=== PATIENT | female | born 1935 | race African-American/Black ===

== ENCOUNTER 2022-06-01 18:49 | Inpatient (IN) ==
[2022-06-01] MEDS ORDERED: ASPIRIN 325 MG TABLET PO STA (19:11)
[2022-06-01 19:23] LABS: Basophils % 0.8 % (0.0-0.8); Eosinophils # 0.2 10*3/uL (0.0-0.87); Eosinophils % 5.1 % (0.00-10.9); Hematocrit 28.6 VOL% (35.7-47.0); Hemoglobin 8.8 GM/DL (12.0-16.0); Immature Granulocytes % 0.3 %; Immature Granulocytes Absolute 0.01 #; Lymphocytes # 0.8 10*3/uL (1.4-4.0); Lymphocytes % 20.8 % (21.3-54.2); Mean Corpuscular HGB Conc 30.8 GM/DL (32-36); Mean Corpuscular Volume 88.5 FL (87-102); Mean Platelet Volume 10.5 FL (9.6-12.0); Monocytes # 0.5 10*3/uL (0.11-0.8); Monocytes % 12.1 % (1.7-12.7); Neutrophils % 60.9 % (38.7-73.9); Platelet Count 194 T/CUMM (130-400); Red Blood Count 3.23 MC/CUMM (3.8-5.5); Red Cell Distribution Width 13.8 % (9.3-17.3); White Blood Count 3.9 T/CUMM (4-12)
[2022-06-01 19:51] LABS: Alanine Aminotransferase 31 U/L (13-56); Alkaline Phosphatase 84 U/L (45-117); Aspartate Amino Transferase 27 U/L (0-37); Bilirubin,Total < 0.39 MG/DL (0.20-1.00); Blood Urea Nitrogen 56 MG/DL (7-18); Calcium 8.7 MG/DL (8.5-10.1); Carbon Dioxide 25 MMOL/L (21-32); Chloride 112 MMOL/L (98-107); Glucose 91 MG/DL (74-106); Osmolality,Calculated 292.5 MOS/KG (273-304); Sodium 139 MMOL/L (136-145); Total Protein 7.6 G/DL (6.4-8.2)
[2022-06-01 19:54] LABS: PT Patient Result 10.9 SECS (10.1-12.1); Potassium 6.8 MMOL/L (3.5-5.1)
[2022-06-01] MEDS ORDERED: INSULIN REGULAR 10 UNIT, CALCIUM GLUCONATE 1,000 MG in DEXTROSE 10% 250 ML IV ONE (19:55)
[2022-06-01] MEDS ORDERED: SODIUM POLYSTYRENE SULFATE 15 GM/60 ML BOTTLE PO STA (19:56)
[2022-06-01] MEDS ORDERED: SODIUM CHLORIDE 0.9% 500 ML IV STA (19:56)
[2022-06-01] MEDS ORDERED: ACETAMINOPHEN 325 MG TABLET PO PRN (20:41)
[2022-06-01] MEDS ORDERED: DEXTROSE 50% 25 GM/50 ML SYRINGE IV ONE (21:55)
[2022-06-01] MEDS ORDERED: DEXTROSE 50% 25 GM/50 ML VIAL IV STA (21:58)
[2022-06-01] MEDS: ONDANSETRON 4 MG/2 ML VIAL IV PRN (22:05)
[2022-06-01] MEDS: MORPHINE 2 MG/1 ML SYRINGE IV PRN (22:05)
[2022-06-01] MEDS ORDERED: DEXTROSE 50% 25 GM/50 ML SYRINGE IV STA (22:16)
[2022-06-01] MEDS ORDERED: DEXTROSE 10% 250 ML IV ONE (23:02)
[2022-06-01] MEDS: DEXTROSE 10% 250 ML IV SCH (23:05)
[2022-06-01 23:24] LABS: Calcium 8.7 MG/DL (8.5-10.1); Osmolality,Calculated 291.3 MOS/KG (273-304); Potassium 5.5 MMOL/L (3.5-5.1)
[2022-06-02] MEDS ORDERED: GLUCAGON 1 MG VIAL IM STA (00:03)
[2022-06-02] MEDS ORDERED: SODIUM POLYSTYRENE SULFATE 15 GM/60 ML BOTTLE PO STA (00:03)
[2022-06-02] MEDS: MORPHINE 2 MG/1 ML SYRINGE IV PRN (02:30)
[2022-06-02] MEDS: ONDANSETRON 4 MG/2 ML VIAL IV PRN (02:30)
[2022-06-02] MEDS ORDERED: DEXTROSE 10% 250 ML IV ONE (03:24)
[2022-06-02] MEDS: DEXTROSE 10% 250 ML IV SCH ×6 (04:23→21:10)
[2022-06-02 05:21] LABS: Calcium 8.7 MG/DL (8.5-10.1); Osmolality,Calculated 287.7 MOS/KG (273-304)
[2022-06-02 05:27] LABS: Potassium 6.5 MMOL/L (3.5-5.1)
[2022-06-02 05:31] LABS: Basophils % 0.7 % (0.0-0.8); Eosinophils # 0.2 10*3/uL (0.0-0.87); Eosinophils % 3.5 % (0.00-10.9); Hematocrit 30.6 VOL% (35.7-47.0); Hemoglobin 9.3 GM/DL (12.0-16.0); Immature Granulocytes % 0.5 %; Immature Granulocytes Absolute 0.02 #; Lymphocytes # 0.7 10*3/uL (1.4-4.0); Lymphocytes % 15.2 % (21.3-54.2); Mean Corpuscular HGB Conc 30.4 GM/DL (32-36); Mean Corpuscular Volume 88.7 FL (87-102); Mean Platelet Volume 10.8 FL (9.6-12.0); Monocytes # 0.4 10*3/uL (0.11-0.8); Monocytes % 9.7 % (1.7-12.7); Neutrophils % 70.4 % (38.7-73.9); Platelet Count 183 T/CUMM (130-400); Red Blood Count 3.45 MC/CUMM (3.8-5.5); White Blood Count 4.3 T/CUMM (4-12)
[2022-06-02] MEDS ORDERED: CALCIUM GLUCONATE RIDER 1,000 MG/50 ML PREMIX IV ONE (05:31)
[2022-06-02] MEDS ORDERED: SODIUM POLYSTYRENE SULFATE 15 GM/60 ML BOTTLE PO ONE (05:31)
[2022-06-02] MEDS ORDERED: ALBUTEROL 2.5 MG/3 ML NEB RESP TX ONE (05:41)
[2022-06-02] MEDS: INSULIN LISPRO 100 UNIT/ML SUBCUT SCH ×4 (07:38→21:11)
[2022-06-02] MEDS: SODIUM ZIRCONIUM CYCLOSILICATE 10 GM PACK PO SCH ×4 (07:39→21:23)
[2022-06-02] MEDS: ENOXAPARIN 30 MG/0.3 ML SYRINGE SUBCUT SCH (09:40)
[2022-06-02] MEDS: PANTOPRAZOLE 40 MG TABLET PO SCH (09:40)
[2022-06-02 13:50] LABS: Calcium 8.6 MG/DL (8.5-10.1); Osmolality,Calculated 274.4 MOS/KG (273-304)
[2022-06-02 13:53] LABS: Potassium 6.3 MMOL/L (3.5-5.1)
[2022-06-02] MEDS: cloNIDine 0.1 MG TABLET PO SCH (14:50)
[2022-06-02] MEDS: atenoloL 50 MG TABLET PO SCH (14:55)
[2022-06-02] MEDS: MAGNESIUM HYDROXIDE SUSP 30 ML UDCUP PO SCH (15:35)
[2022-06-02] MEDS: SODIUM CHLORIDE 0.9% 1,000 ML IV SCH ×3 (16:38→23:40)
[2022-06-02 20:10] LABS: Calcium 8.4 MG/DL (8.5-10.1); Osmolality,Calculated 279.8 MOS/KG (273-304); Potassium 5.3 MMOL/L (3.5-5.1)
[2022-06-02] MEDS ORDERED: GLUCAGON 1 MG VIAL IM PRN (20:23)
[2022-06-02] MEDS ORDERED: DEXTROSE 10% 250 ML BAG IV PRN (20:27)
[2022-06-02] MEDS: hydrALAZINE 20 MG/1 ML VIAL IV PRN (21:10)
[2022-06-02] MEDS: SIMVASTATIN 10 MG TABLET PO SCH (21:23)
[2022-06-03] MEDS: DEXTROSE 10% 250 ML IV SCH ×3 (01:54→12:15)
[2022-06-03 06:10] LABS: Basophils % 0.5 % (0.0-0.8); Eosinophils # 0.2 10*3/uL (0.0-0.87); Eosinophils % 5.4 % (0.00-10.9); Hematocrit 31.3 VOL% (35.7-47.0); Hemoglobin 9.9 GM/DL (12.0-16.0); Immature Granulocytes % 0.5 %; Immature Granulocytes Absolute 0.02 #; Lymphocytes # 0.6 10*3/uL (1.4-4.0); Mean Corpuscular HGB Conc 31.6 GM/DL (32-36); Mean Corpuscular Volume 87.2 FL (87-102); Mean Platelet Volume 10.6 FL (9.6-12.0); Monocytes # 0.4 10*3/uL (0.11-0.8); Monocytes % 9.7 % (1.7-12.7); Neutrophils % 70.9 % (38.7-73.9); Platelet Count 179 T/CUMM (130-400); Red Blood Count 3.59 MC/CUMM (3.8-5.5); Red Cell Distribution Width 13.6 % (9.3-17.3); White Blood Count 4.2 T/CUMM (4-12)
[2022-06-03 06:22] LABS: Calcium 8.6 MG/DL (8.5-10.1); Osmolality,Calculated 269.5 MOS/KG (273-304); Potassium 5.1 MMOL/L (3.5-5.1)
[2022-06-03] MEDS: INSULIN LISPRO 100 UNIT/ML SUBCUT SCH ×4 (08:19→20:53)
[2022-06-03] MEDS: atenoloL 50 MG TABLET PO SCH (08:27)
[2022-06-03] MEDS: ENOXAPARIN 30 MG/0.3 ML SYRINGE SUBCUT SCH (08:28)
[2022-06-03] MEDS: MAGNESIUM HYDROXIDE SUSP 30 ML UDCUP PO SCH (08:28)
[2022-06-03] MEDS: cloNIDine 0.1 MG TABLET PO SCH (08:28)
[2022-06-03] MEDS: PANTOPRAZOLE 40 MG TABLET PO SCH (08:28)
[2022-06-03] MEDS: SODIUM ZIRCONIUM CYCLOSILICATE 10 GM PACK PO SCH ×2 (08:28→16:50)
[2022-06-03] MEDS: SODIUM CHLORIDE 0.9% 1,000 ML IV SCH (16:08)
[2022-06-03] MEDS: SIMVASTATIN 10 MG TABLET PO SCH (20:51)
[2022-06-04 02:05] LABS: Bacteria,Urine Occasional /HPF (Few); Mucus,Urine Occasional /LPF (Occasional)
[2022-06-04 02:06] LABS: Glucose,Urine (UA) Negative (Negative); Ketones,Urine Negative (Negative); Nitrite,Urine Negative (Negative); Protein,Urine Negative (Negative); Urine Appearance Clear (Clear); Urine Color Yellow (Yellow); Urine Specific Gravity 1.015 (1.001-1.035); Urine pH 7.5 (4.5-8.0)
[2022-06-04 02:07] LABS: Bilirubin,Urine Negative (Negative); Blood, Urine Trace mg/dL (Negative); Urine Urobilinogen 0.2 eU/dL (<2.0)
[2022-06-04] MEDS: SODIUM CHLORIDE 0.9% 1,000 ML IV SCH ×3 (04:33→18:04)
[2022-06-04 06:58] LABS: Calcium 8.5 MG/DL (8.5-10.1); Osmolality,Calculated 281.4 MOS/KG (273-304); Potassium 5.2 MMOL/L (3.5-5.1)
[2022-06-04] MEDS: INSULIN LISPRO 100 UNIT/ML SUBCUT SCH ×4 (07:46→20:02)
[2022-06-04] MEDS: MAGNESIUM HYDROXIDE SUSP 30 ML UDCUP PO SCH (08:53)
[2022-06-04] MEDS: atenoloL 50 MG TABLET PO SCH (08:53)
[2022-06-04] MEDS: ENOXAPARIN 30 MG/0.3 ML SYRINGE SUBCUT SCH (08:53)
[2022-06-04] MEDS: PANTOPRAZOLE 40 MG TABLET PO SCH (08:53)
[2022-06-04] MEDS: cloNIDine 0.1 MG TABLET PO SCH (08:53)
[2022-06-04] MEDS: SIMVASTATIN 10 MG TABLET PO SCH (20:02)
[2022-06-05] MEDS: hydrALAZINE 20 MG/1 ML VIAL IV PRN ×2 (00:27→10:54)
[2022-06-05] MEDS: SODIUM CHLORIDE 0.9% 1,000 ML IV SCH ×2 (06:04→19:30)
[2022-06-05] MEDS: INSULIN LISPRO 100 UNIT/ML SUBCUT SCH ×4 (08:56→20:54)
[2022-06-05 10:09] LABS: Calcium 9.2 MG/DL (8.5-10.1); Osmolality,Calculated 275.2 MOS/KG (273-304); Potassium 4.6 MMOL/L (3.5-5.1)
[2022-06-05] MEDS: MAGNESIUM HYDROXIDE SUSP 30 ML UDCUP PO SCH (10:50)
[2022-06-05] MEDS: atenoloL 50 MG TABLET PO SCH (10:51)
[2022-06-05] MEDS: cloNIDine 0.1 MG TABLET PO SCH (10:51)
[2022-06-05] MEDS: PANTOPRAZOLE 40 MG TABLET PO SCH (10:51)
[2022-06-05] MEDS: ENOXAPARIN 30 MG/0.3 ML SYRINGE SUBCUT SCH (10:52)
[2022-06-05] MEDS: RIVASTIGMINE 4.6 MG/24 HR PATCH TRANSDERM SCH (10:53)
[2022-06-05] MEDS: SIMVASTATIN 10 MG TABLET PO SCH (21:15)
[2022-06-06] MEDS: INSULIN LISPRO 100 UNIT/ML SUBCUT SCH ×3 (09:36→16:10)
[2022-06-06] MEDS: ENOXAPARIN 30 MG/0.3 ML SYRINGE SUBCUT SCH (09:38)
[2022-06-06] MEDS: MAGNESIUM HYDROXIDE SUSP 30 ML UDCUP PO SCH (09:38)
[2022-06-06] MEDS: RIVASTIGMINE 4.6 MG/24 HR PATCH TRANSDERM SCH (09:39)
[2022-06-06] MEDS: PANTOPRAZOLE 40 MG TABLET PO SCH (09:39)
[2022-06-06] MEDS: cloNIDine 0.1 MG TABLET PO SCH (09:39)
[2022-06-06] MEDS: atenoloL 50 MG TABLET PO SCH (09:49)
[2022-06-06 11:29] VITALS: BP 123/65
[2022-06-06] MEDS: SODIUM CHLORIDE 0.9% 1,000 ML IV SCH (13:43)
== END 2022-06-06 16:12 | DRG 641 ==
LOC: N.ED 18:49 → N.EDINP 20:41 → SUATTDRO 20:41 → N.TELES 20:41
PROVIDERS: ADMIT Internal Medicine Geriatric Medicine; ATTEND Internal Medicine